=== PATIENT | female | born 1960 | race Caucasian/White ===

== ENCOUNTER 2021-01-04 09:49 | Emergency (ER) | payer OTHER ==
[2021-01-04 10:42] LABS: BASOPHIL 0.2 % (0-2); EOSINOPHIL 0 % (0-5); HCT 41.2 % (37.0-47.0); HGB 13.7 g/dl (12.5-16.0); LYMPHOCYTE 4.3 % (15-48); MCH 27.3 pg (25.0-31.0); MCHC 33.3 g/dL (32.0-36.0); MCV 82.2 fL (78.0-100.0); MONOCYTE 7.2 % (0-12); NEUTROPHIL 86.8 % (41-80); NRBC 0; PLT 166 K/uL (150-400); RBC 5.01 M/uL (4.20-5.40); RDW 14.4 % (11.5-14.0); WBC 13.4 K/uL (4.0-10.5)
[2021-01-04 11:38] LABS: CREATININE 1.55 mg/dL (0.51-0.95); POTASSIUM 3.3 mmol/L (3.5-5.1)
[2021-01-04 11:39] LABS: ALBUMIN 2.6 g/dL (3.4-5.0); BILIRUBIN - TOTAL 1.2 mg/dL (0.2-1.0); GLOBULIN (CALCULATION) 4.6 g/dL; MAGNESIUM 1.5 mg/dL (1.8-2.4); TOTAL PROTEIN 7.2 g/dL (6.4-8.2)
[2021-01-04 11:50] LABS: BILIRUBIN 2+ mg/dL (NEGATIVE); BLOOD TRACE-INTACT Ery/uL (NEGATIVE); CLARITY HAZY (CLEAR); COLOR YELLOW (YELLOW); GLUCOSE (U) NORMAL (NORMAL); LEUKOCYTES 3+ Leu/uL (NEGATIVE); NITRITE POSITIVE (NEGATIVE); PROTEIN 2+ mg/dL (NEGATIVE); pH 5.5 (5.0-9.0)
[2021-01-04 12:01] LABS: BACTERIA 3+
[2021-01-04] MEDS ORDERED: ONDANSETRON ODT4 MG PO (13:01)
[2021-01-04] MEDS ORDERED: BACTRIM DS TAB1 EACH PO (13:01)
== END 2021-01-04 14:08 | disposition home or self-care (01) ==
LOC: FER 09:49
PROVIDERS: Emergency Medicine
DX: E83.42 Hypomagnesemia (principal); N39.0 Urinary tract infection, site not specified; Z20.822 Contact with and (suspected) exposure to COVID-19; E11.9 Type 2 diabetes mellitus without complications; I10 Essential (primary) hypertension; R00.0 Tachycardia, unspecified; Z79.84 Long term (current) use of oral hypoglycemic drugs
CPT/HCPCS: 36415; 80053; 81001; 83735; 84443; 85025; 87076; 87088; 87186; 93005; J0696; J2405; J3475; J7030; U0002